=== PATIENT | male | born 1990 | race Caucasian/White ===

== ENCOUNTER 2021-02-25 20:11 | Emergency (ER) | payer OTHER ==
[~2021-02-25] VITALS: Ht 162.6 cm; Wt 47.2 kg
[~2021-02-25 20:11] MED LIST: AMOXICILLIN500 MG PO; BACTRIM DS TAB1 EACH PO; CLINDAMYCIN HC300 MG PO; NORCO 10-325 T1 EACH PO; NORCO 5-325 TA1 EACH PO; PENICILLIN V P500 MG PO
[2021-02-26] MEDS ORDERED: OMEPRAZOLE20 MG PO (00:53)
== END 2021-02-26 01:10 | disposition home or self-care (01) ==
LOC: ED 20:11
DX: K30 Functional dyspepsia (principal); F17.200 Nicotine dependence, unspecified, uncomplicated
CPT/HCPCS: 80053; 84443; 85025; 96374; 99283-25; C9113; J7030

== ENCOUNTER 2021-05-06 22:16 | Emergency (ER) | payer OTHER ==
[~2021-05-06] VITALS: Ht 162.6 cm; Wt 45.4 kg
[~2021-05-06 22:16] MED LIST changes: +OMEPRAZOLE20 MG PO
== END 2021-05-07 01:18 | disposition home or self-care (01) ==
LOC: ED 22:16
DX: Z02.79 Encounter for issue of other medical certificate (principal); F17.200 Nicotine dependence, unspecified, uncomplicated; Z79.899 Other long term (current) drug therapy
CPT/HCPCS: 99281